=== PATIENT | female | born 1980 | race Caucasian/White ===

== ENCOUNTER 2018-02-14 23:14 | Emergency (ER) | payer MEDICAID ==
[~2018-02-14] VITALS: Ht 142.2 cm; Wt 63.2 kg
[2018-02-14 23:24] VITALS: BP 124/79
[2018-02-14] MEDS ORDERED: LIDOCAINE 2% 1000 MG/50 ML VIAL INJ ONE (23:55)
[2018-02-15 00:49] VITALS: BP 124/79
== END 2018-02-15 00:49 | disposition home or self-care (01) ==
LOC: MED 23:14
DX: H60.02 Abscess of left external ear (principal); Z90.49 Acquired absence of other specified parts of digestive tract
CPT/HCPCS: 10060; 99283; J2001

== ENCOUNTER 2018-02-22 14:17 | Emergency (ER) | payer MEDICAID ==
[~2018-02-22] VITALS: Ht 149.9 cm; Wt 62.8 kg
[2018-02-22 14:25] VITALS: BP 116/72
--- NOTE | 2018-02-22 14:41 | NUR ---
PT. CAME INTO THE ED FOR A RECHECK FOR ABSCESS ON LT EAR SEEN ON 02/14/2018 DENIES FEVERS. DENIES ANY PAIN AT THIS TIME. L EAR HAS NO DRAINAGE NOTED. ER MD NOTIFIED. WILL CONTINUE TO MONITOR.
[2018-02-22] MEDS ORDERED: BACITRACIN OINT 500 UNITS/GM PKT TP ONE (14:50)
[2018-02-22 15:21] VITALS: BP 116/72
--- NOTE | 2018-02-22 15:21 | NUR ---
Patient discharged with v/s stable. Written and verbal after care instructions given and explained. Patient alert, oriented and verbalized understanding of instructions. Ambulatory with steady gait. All questions addressed prior to discharge. ID band removed. Patient advised to follow up with PMD. Rx of NEOSPORIN OINTMENT given. Patient educated on indication of medication including possible reaction and side effects. Opportunity to ask questions provided and answered.
== END 2018-02-22 15:21 | disposition home or self-care (01) ==
LOC: MED 14:17
DX: Z48.01 Encounter for change or removal of surgical wound dressing (principal); H66.42 Suppurative otitis media, unspecified, left ear
CPT/HCPCS: 99282; 99283

== ENCOUNTER 2018-04-21 19:53 | Emergency (ER) | payer MEDICAID ==
[~2018-04-21] VITALS: Ht 144.8 cm; Wt 64.9 kg
[2018-04-21 20:13] VITALS: BP 121/58
--- NOTE | 2018-04-21 20:17 | NUR ---
PT AMBULATORY TO BR THEN TO LOBBY W/STEADY GAIT IN STABLE CONDITION.
--- NOTE | 2018-04-21 21:15 | NUR ---
PT TAKEN TO US VIA WHEELCHAIR IN STABLE CONDITION
--- NOTE | 2018-04-21 21:24 | NUR ---
PT BIB SELF C/O LOWER BACK PAIN AFTER WORKING TODAY. 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 PT SITTING IN BED IN NO APPARENT DISTRESS. PT IS CURRENTLY , ON HER 3RD AND HAS 2 KIDS AT HOME. ER MD AWARE OF PT STATUS.
[2018-04-21 21:49] LABS: APPEARANCE,URINE CLEAR (CLEAR); BILIRUBIN,URINE NEGATIVE (NEGATIVE); BLOOD, URINE NEGATIVE (NEGATIVE); COLOR,URINE YELLOW (YELLOW); LEUKOCYTE ESTERASE ,URINE NEGATIVE (NEGATIVE); NITRITE, URINE NEGATIVE (NEGATIVE); UGLUCOSE NEGATIVE (NEGATIVE)
--- NOTE | 2018-04-21 21:54 | NUR ---
PT RETURN FROM ULTRA SOUND
[2018-04-21 22:18] LABS: BASOPHILS % (AUTO) 0.4 % (0.0-2.0); EOSINOPHILS # (AUTO) 0.2 K/uL (0-0.4); EOSINOPHILS % (AUTO) 2.2 % (0.0-4.0); HEMOGLOBIN 12.8 g/dL (12.0-16.0); LYMPHOCYTES # (AUTO) 2.6 K/uL (2.5-16.5); LYMPHOCYTES % (AUTO) 28.2 % (20.5-51.1); MEAN CORPUSCULAR HEMOGLOBIN 28 pg (27-31); MEAN CORPUSCULAR HGB CONC 33 g/dL (33-37); MEAN CORPUSCULAR VOLUME 83.4 fL (80-94); MONOCYTES # (AUTO) 0.7 K/uL (0.8-1.0); MONOCYTES % (AUTO) 7.3 % (1.7-9.3); NEUTROPHILS # (AUTO) 5.8 K/uL (1.8-7.7); NEUTROPHILS % (AUTO) 61.9 % (42.2-75.2); PLATELET COUNT (AUTO) 341 K/uL (140-450); RED BLOOD CELL COUNT(AUTO) 4.67 MIL/uL (4.20-5.40); RED CELL DISTRIBUTION WIDTH 13.8 % (11.6-13.7); WHITE BLOOD COUNT (AUTO) 9.3 K/uL (4.8-10.8)
--- NOTE | 2018-04-21 23:19 | NUR ---
PT LAYING IN BED, IN NO DISTRESS WILL CONTINUE TO MONITOR.
[2018-04-21] MEDS ORDERED: ACETAMINOPHEN 325 MG TAB PO ONE (23:40)
--- NOTE | 2018-04-22 00:50 | NUR ---
Patient discharged with v/s stable. Written and verbal after care instructions given and explained. Patient alert, oriented and verbalized understanding of instructions. Ambulatory with steady gait. All questions addressed prior to discharge. ID band removed. Patient advised to follow up with PMD. Rx of acetaminophen 500mg q6hrs given. Patient educated on indication of medication including possible reaction and side effects. Opportunity to ask questions provided and answered.
[2018-04-22 00:51] VITALS: BP 114/59
== END 2018-04-22 00:50 | disposition home or self-care (01) ==
LOC: MED 19:53
DX: O26.891 Other specified pregnancy related conditions, first trimester (principal); M54.5 Low back pain; Z3A.10 10 weeks gestation of pregnancy
CPT/HCPCS: 36415; 76817; 81003; 81025; 84702; 85025; 86900; 86901; 99285; Q0092; 81002

== ENCOUNTER 2018-06-02 22:56 | Emergency (ER) | payer MEDICAID ==
[~2018-06-02] VITALS: Ht 165.1 cm; Wt 65.8 kg
[2018-06-02 23:00] VITALS: BP 121/76
[2018-06-03] MEDS ORDERED: ACETAMINOPHEN EXTRA STRENGTH 500 MG TAB PO ONE (01:05)
[2018-06-03 01:51] LABS: APPEARANCE,URINE CLEAR (CLEAR); BILIRUBIN,URINE NEGATIVE (NEGATIVE); BLOOD, URINE NEGATIVE (NEGATIVE); COLOR,URINE YELLOW (YELLOW); NITRITE, URINE NEGATIVE (NEGATIVE); UGLUCOSE NEGATIVE (NEGATIVE)
[2018-06-03 01:52] LABS: LEUKOCYTE ESTERASE ,URINE NEGATIVE (NEGATIVE)
[2018-06-03 03:46] VITALS: BP 107/64
== END 2018-06-03 03:46 | disposition home or self-care (01) ==
LOC: MED 22:56
DX: O26.891 Other specified pregnancy related conditions, first trimester (principal); R10.31 Right lower quadrant pain
CPT/HCPCS: 76705; 76815; 81003; 81025; 99285; Q0092